=== PATIENT | female | born 1985 | race African-American/Black ===

== ENCOUNTER 2017-12-03 09:53 | Emergency (ER) | payer OTHER ==
[2017-12-03 11:30] LABS: ADD MAN DIFF? NO
[2017-12-03 11:31] LABS: URINE HCG POC HCG NEGATIVE (Negative)
[2017-12-03 11:38] LABS: BILIRUBIN,URINE NEGATIVE (NEG); CLARITY,URINE CLEAR; COLOR,URINE YELLOW; GLUCOSE,URINE NEGATIVE (NEG); NITRITE,URINE NEGATIVE (NEG); PH,URINE 7.5; PROTEIN,URINE NEGATIVE (NEG-TRACE); UROBILINOGEN,URINE 0.2 mg/dL (0.2 mg/dL)
[2017-12-03 11:41] LABS: BASO % 1 % (0-3); EOS # 0.1 x10^3/uL (0.0-0.7); EOS % 4 % (0-3); HEMATOCRIT 35.7 % (36.0-47.0); HEMOGLOBIN 11.6 g/dL (12.0-15.5); LYMPH # 1.7 x10^3/uL (1.0-4.8); LYMPH % 43 % (24-48); MEAN CORPUSCULAR HEMOGLOBIN 31 pg (25-35); MEAN CORPUSCULAR HGB CONC 33 g/dL (31-37); MEAN CORPUSCULAR VOLUME 95 fL (79-100); MONO # 0.3 x10^3/uL (0.0-1.1); MONO % 7 % (0-9); NEUT # 1.8 x10^3uL (1.8-7.7); NEUT % 46 % (31-73); PLATELET COUNT 249 x10^3/uL (140-400); RED BLOOD COUNT 3.77 x10^6/uL (3.50-5.40); RED CELL DISTRIBUTION WIDTH 13.4 % (11.5-14.5)
[2017-12-03 11:44] LABS: BARBITURATES NEG (NEG); BENZODIAZEPINES NEG (NEG); CANNABINOIDS NEG (NEG); COCAINE NEG (NEG); METHADONE NEG (NEG); OPIATES NEG (NEG); PHENCYCLIDINE NEG (NEG)
[2017-12-03 11:46] LABS: AMPHETAMINE/METHAMPHETAMINE NEG (NEG); ETHANOL, URINE NEG (NEG)
[2017-12-03 11:51] LABS: SQUAMOUS EPITHELIAL CELL,UR MOD /LPF
[2017-12-03 11:52] LABS: BACTERIA,URINE FEW /HPF (0-FEW); RBC,URINE OCC /HPF (0-2)
[2017-12-03 12:00] LABS: TROPONINI < 0.017 ng/mL (0.000-0.055)
[2017-12-03 12:03] LABS: THYROID STIM HORMONE (TSH) 1.642 uIU/mL (0.358-3.74)
[2017-12-03 12:06] LABS: CKMB INDEX 0.7 % (0-4); CKMB MASS 0.6 ng/mL (0.0-3.6); CREATINE KINASE 84 U/L (26-192)
[2017-12-03 12:06] LABS: NT-PRO BNP 40 pg/mL (0-124)
[2017-12-03 12:08] LABS: ANION GAP 10 (6-14); BLOOD UREA NITROGEN 8 mg/dL (7-20); CALCIUM 8.1 mg/dL (8.5-10.1); CARBON DIOXIDE 26 mmol/L (21-32); CHLORIDE 104 mmol/L (98-107); CREATININE 0.5 mg/dL (0.6-1.0); GFR 171.9; GLUCOSE 88 mg/dL (70-99); POTASSIUM 3.7 mmol/L (3.5-5.1); SODIUM 140 mmol/L (136-145)
[2017-12-03 12:11] LABS: ALBUMIN 3.9 g/dL (3.4-5.0); ALK PHOS 52 U/L (46-116); ALT (SGPT) 13 U/L (14-59); AST (SGOT) 15 U/L (15-37); DIRECT BILIRUBIN 0.1 mg/dL (0.0-0.2); LIPASE 104 U/L (73-393); MAGNESIUM 2.1 mg/dL (1.8-2.4); TOTAL BILIRUBIN 0.4 mg/dL (0.2-1.0); TOTAL PROTEIN 7.4 g/dL (6.4-8.2)
== END 2017-12-03 12:46 | disposition home or self-care (01) ==
LOC: ER 09:53
DX: R00.2 Palpitations (principal); R07.89 Other chest pain; R06.02 Shortness of breath; I48.91 Unspecified atrial fibrillation
CPT/HCPCS: 36415; 71046; 80048; 80076; 80307; 81001; 81025; 82553; 83690; 83735; 83880; 84443; 84484; 85025; 93005; 99285-25

== ENCOUNTER → 2018-01-17 | Outpatient (CLI) | payer OTHER | END | disposition home or self-care (01) | LOC: EKG 10:07 | DX: I34.0 Nonrheumatic mitral (valve) insufficiency (principal); R00.2 Palpitations; R06.02 Shortness of breath; R53.83 Other fatigue; R07.89 Other chest pain | CPT/HCPCS: 93226; 93306 ==

== ENCOUNTER → 2018-11-25 | Outpatient (CLI) | payer MEDICAID ==
[2017-12-03 12:15] VITALS: BP 108/62
--- NOTE | 2018-11-25 18:33 | RAD ---
EXAM: PA and Lateral Views of the Chest DATE: 11/25/2018 3:08 PM INDICATION: chest pain, soa x2 weeks COMPARISON: No Prior FINDINGS: The heart is not enlarged. Mediastinal and hilar contours are normal. No focal parenchymal airspace opacity. No pleural effusion or pneumothorax. Apparent nodular density projecting over the lower right lung field is favored to represent a nipple shadow. IMPRESSION: 1. No radiographic evidence for acute cardiopulmonary process. 2. Apparent nodular density projecting over the lower right lung field is favored to represent a nipple shadow. Electronically signed by: Gregg Harp MD (11/25/2018 6:28 PM) [id number]
== END | disposition home or self-care (01) ==
LOC: RAD 14:47
PROVIDERS: ATTEND Internal Medicine Cardiovascular Disease
DX: R07.9 Chest pain, unspecified (principal); R06.02 Shortness of breath
CPT/HCPCS: 71046

== ENCOUNTER → 2018-12-11 | Outpatient (CLI) | payer OTHER ==
[2017-12-03 12:15] VITALS: BP 108/62
--- NOTE | 2018-12-11 15:29 | CARD ---
MR#: [id number] Date of Study: 12/11/2018 Ordering Physician: PRINCESS SUAREZ, Referring Physician: PRINCESS SUAREZ, Tech: Sarah Marin GIN APPROVED REPORT INDICATION Chest Pain Murmur PROCEDURE The patient underwent an Exercise Stress Test using the Richie Protocol. Blood pressure, heart rate, a nd EKG were monitored. An Echocardiogram was performed by railroad signal technician in four stages in quad fashion. At peak stress four se lected images were obtained and placed side by side with resting images for comparison. STRESS ECHO FINDINGS The resting Echocardiogram showed normal left ventricular systolic contractility with an estimated Ej ection Fraction of about 60 %. The Resting Echocardiogram showed normal augmentation of myocardial wall segments using a 16 segment model. The Stress Echocardiogram showed normal augmentation of myocardial wall segments using a 16 segment m michael. Test Type: Exercise Stress Nurse/Tech: Carly Cannon R.N. Test Indications: c/p Cardiac History and Allergies: see ehr Medications: see ehr Medical History: see ehr Resting ECG: SR Resting Heart Rate: 90 bpm Resting Blood Pressure: 103/44mmHg Pretest Chest Pain: No chest pain Nurse/Tech Notes S1S2, lungs CTA Stress Symptoms SOB at the end and chest pressure scale 5/10-- not the same pain she has been having- resolved by end of recovery period POST EXERCISE Reason for Termination: Reached target heart rate Target HR: Yes Max HR: 183 bpm 98% of Maximum Predicted HR: 186 bpm Exercise duration: 12:01 min:sec, 4 Stage Exercise capacity: 12.8METs Max Blood Pressure: 154/72mmHg Blood Pressure response to exercise: Normal blood pressure response during stress. Heart Rate response to exercise: wnl Chest Pain: Yes. chest pressure Arrhythmia: No. ST Change: No. INTERPRETATION Stress EKG Conclusion: Baseline EKG showed sinus rhythm. No ischemic changes at peak stress. No arr hythmias. Preliminary Notification Critical Value: No <Conclusion> Treadmill exercise stress echocardiogram did not show any evidence of ischemia or infarct. Normal left ventricle systolic function with ejection fraction estimated at 60%. Patient had good activity tolerance. Low risk for cardiac events. Signed by : Demond Brandon, Electronically Approved : 12/11/2018 15:27:45
--- NOTE | 2018-12-11 15:31 | CARD ---
MR#: [id number] Date of Study: 12/11/2018 Ordering Physician: PRINCESS SUAREZ, Referring Physician: PRINCESS SUAREZ, Tech: Sarah Marin GIN APPROVED REPORT EXAM: Two-dimensional and M-mode echocardiogram with Doppler and color Doppler. Other Information Quality : Good INDICATION Chest Pain Murmur 2D DIMENSIONS RVDd2.8 (2.9-3.5cm)Left Atrium(2D)2.6 (1.6-4.0cm) IVSd0.7 (0.7-1.1cm)Aortic Root(2D)2.3 (2.0-3.7cm) LVDd4.1 (3.9-5.9cm)LVOT Diameter2.0 (1.8-2.4cm) PWd0.7 (0.7-1.1cm)LVDs2.4 (2.5-4.0cm) FS (%) 30.0 %SV53.0 ml LVEF(%)60.0 (>50%) Aortic Valve AoV Peak Ernesto.140.0cm/sAoV VTI22.5cm AO Peak GR.7.8mmHgLVOT Peak Ernesto.132.6cm/s AO Mean GR.4mmHgAVA (VMAX)2.94cm2 CORINA (VTI)3.30cm2 Mitral Valve MV E Apbktelo32.7cm/sMV DECEL [id number] MV A Yigiaqom33.4cm/sE/A Ratio1.5 Tricuspid Valve TR P. Atdqctcz918wm/sRAP SZAZHEML1jdIr TR Peak Gr.19rwZaWWKO91jzFs Pulmonary Vein S1 Djvrafeq16.9cm/sD2 Sxuhvdrt29.2cm/s LEFT VENTRICLE The left ventricle is normal size. There is normal left ventricular wall thickness. The left ventricu lar systolic function is normal. The Ejection Fraction is 55-60%. There is normal LV segmental wall m otion. The left ventricular diastolic function and filling is normal for age. RIGHT VENTRICLE The right ventricle is normal size. The right ventricular systolic function is normal. ATRIA The left atrium size is normal. The right atrium size is normal. The interatrial septum is intact wit h no evidence for an atrial septal defect or patent foramen ovale as noted on 2-D or Doppler imaging. AORTIC VALVE The aortic valve is normal in structure and function. Doppler and Color Flow revealed no significant aortic regurgitation. There is no significant aortic valvular stenosis. MITRAL VALVE The mitral valve is normal in structure and function. There is no evidence of mitral valve prolapse. There is no mitral valve stenosis. Doppler and Color Flow revealed no mitral valve regurgitation note d. TRICUSPID VALVE The tricuspid valve is normal in structure and function. Doppler and Color Flow revealed trace tricus pid regurgitation. The PA pressure was estimated at 23 mmHg. There is no tricuspid valve stenosis. PULMONIC VALVE The pulmonic valve is not well visualized. Doppler and Color Flow revealed trace pulmonic valvular re gurgitation. There is no pulmonic valvular stenosis. GREAT VESSELS The aortic root is normal in size. The ascending aorta is normal in size. The IVC is normal in size a nd collapses >50% with inspiration. PERICARDIAL EFFUSION There is no evidence of significant pericardial effusion. Critical Notification Critical Value: No <Conclusion> The left ventricular systolic function is normal. The Ejection Fraction is 55-60%. There is normal LV segmental wall motion. Doppler and Color Flow revealed trace tricuspid regurgitation. The PA pressure was estimated at 23 mmHg. There is no evidence of significant pericardial effusion. Signed by : Demond Brandon, Electronically Approved : 12/11/2018 15:28:46
== END | disposition home or self-care (01) ==
LOC: ECHO 13:03
PROVIDERS: ATTEND Internal Medicine Cardiovascular Disease
DX: R01.1 Cardiac murmur, unspecified (principal); R07.9 Chest pain, unspecified
CPT/HCPCS: 93017; 93306; 93350

== ENCOUNTER 2019-08-13 13:29 | Emergency (ER) | payer SELFPAY ==
[~2019-08-13] VITALS: Ht 162.6 cm; Wt 56.7 kg
[2019-08-13 13:40] VITALS: BP 121/59
[2019-08-13] MEDS ORDERED: predniSONE 20 MG TABLET PO ONE (14:15)
--- NOTE | 2019-08-13 14:20 | PHYS DOC ---
Past Medical History Past Medical History: No Pertinent History Additional Past Medical Histor: miscarriage x 2 (MIAHYUDELKA BARROSO APRN) Past Surgical History: , Tonsillectomy Additional Past Surgical Histo: x 2 (MIAHYUDELKA BARROSO APRN) Alcohol Use: Occasionally Drug Use: Marijuana (MIAHYUDELKA BARROSO APRN) Adult General Chief Complaint Chief Complaint: BACK INJURY HPI HPI Patient is a 34 year old female who presents with lower back pain. Hx of chronic back pain, has not had pain in "years" Started to have pain in May, lower back after moving. Has been seeing a Chiropractor, not worse but not better. States her lower back is out of alignment.no falls or trauma. No deficit. Motrin for pain Has not called PCP also concerned about UTI, reports urinary frequency, no fevers or dysuria. No hematuria (MIAHYUDELKA BARROSO APRN) Review of Systems Review of Systems Constitutional: Denies fever or chills [] Eyes: Denies change in visual acuity, redness, or eye pain [] HENT: Denies nasal congestion or sore throat [] Respiratory: Denies cough or shortness of breath [] Cardiovascular: No additional information not addressed in HPI [] GI: Denies abdominal pain, nausea, vomiting, bloody stools or diarrhea [] : Denies dysuria or hematuria []c/o frequency Musculoskeletal: Denies joint pain []c/o lower back pain Integument: Denies rash or skin lesions [] Neurologic: Denies headache, focal weakness or sensory changes [] Endocrine: Denies polyuria or polydipsia [] All other systems were reviewed and found to be within normal limits, except as documented in this note. (MIAHYUDELKA BARROSO APRN) Current Medications Current Medications Current Medications Medications (Trade) Dose Ordered Sig/Demetrius Start Time Stop Time Status Last Admin Dose Admin Cephalexin HCl (Keflex) 500 mg ONCE ONCE 08/13/19 15:00 08/13/19 15:01 DC 08/13/19 14:58 500 MG Prednisone (Prednisone) 60 mg 1X ONCE 08/13/19 14:15 08/13/19 14:16 DC 08/13/19 14:15 60 MG (ALBERT MELISSA MD) Allergies Allergies Allergies Coded Allergies Type Severity Reaction Last Updated Verified No Known Drug Allergies 05/17/15 No (ALBERT MELISSA MD) Physical Exam Physical Exam Constitutional: Well developed, well nourished, no acute distress, non-toxic appearance. [] HENT: Normocephalic, atraumatic, bilateral external ears normal, oropharynx moist, no oral exudates, nose normal. [] Eyes: PERRLA, EOMI, conjunctiva normal, no discharge. [] Neck: Normal range of motion, no tenderness, supple, no stridor. [] Cardiovascular:Heart rate regular rhythm, no murmur [] Lungs & Thorax: Bilateral breath sounds clear to auscultation [] Abdomen: Bowel sounds normal, soft, no tenderness, no masses, no pulsatile masses. [] Skin: Warm, dry, no erythema, no rash. [] Back: no CVA tenderness. [] No rash, no masses, no VPT, diffuse pain to the lower back, negative bilateral saddle anesthesia, intact pulses and distal cap refill, negative straight leg raise Extremities: No tenderness, no cyanosis, no clubbing, ROM intact, no edema. [] Neurologic: Alert and oriented X 3, normal motor function, normal sensory function, no focal deficits noted. [] Psychologic: Affect normal, judgement normal, mood normal. [] (YUDELKA DOOLEY APRN) Current Patient Data Vital Signs Vital Signs Date Time Temp Pulse Resp B/P (MAP) Pulse Ox O2 Delivery O2 Flow Rate FiO2 08/13/19 13:40 97.9 64 16 121/59 (79) 97 Room Air 97.9 (ALBERT MELISSA MD) Lab Values Laboratory Tests Test 08/13/19 14:05 08/13/19 14:12 Urine Collection Type Void Urine Color Yellow Urine Clarity Clear Urine pH 6.0 Urine Specific Dane 1.020 Urine Protein Negative mg/dL (NEG-TRACE) Urine Glucose (UA) Negative mg/dL (NEG) Urine Ketones (Stick) 15 mg/dL (NEG) Urine Blood Small (NEG) Urine Nitrite Negative (NEG) Urine Bilirubin Negative (NEG) Urine Urobilinogen Dipstick 0.2 mg/dL (0.2 mg/dL) Urine Leukocyte Esterase Negative (NEG) Urine RBC 1-2 /HPF (0-2) Urine WBC Rare /HPF (0-4) Urine Squamous Epithelial Cells Mod /LPF Urine Bacteria Moderate /HPF (0-FEW) Urine Mucus Marked /LPF POC Urine HCG, Qualitative Hcg negative (Negative) (ALBERT MELISSA MD) Lab Values Laboratory Tests Test 08/13/19 14:05 08/13/19 14:12 Urine Collection Type Void Urine Color Yellow Urine Clarity Clear Urine pH 6.0 Urine Specific Dane 1.020 Urine Protein Negative mg/dL (NEG-TRACE) Urine Glucose (UA) Negative mg/dL (NEG) Urine Ketones (Stick) 15 mg/dL (NEG) Urine Blood Small (NEG) Urine Nitrite Negative (NEG) Urine Bilirubin Negative (NEG) Urine Urobilinogen Dipstick 0.2 mg/dL (0.2 mg/dL) Urine Leukocyte Esterase Negative (NEG) Urine RBC 1-2 /HPF (0-2) Urine WBC Rare /HPF (0-4) Urine Squamous Epithelial Cells Mod /LPF Urine Bacteria Moderate /HPF (0-FEW) Urine Mucus Marked /LPF POC Urine HCG, Qualitative Hcg negative (Negative) (YUDELKA DOOLEY APRN) EKG EKG [] (YUDELKA DOOLEY APRN) Radiology/Procedures Radiology/Procedures [] Signed PATIENT: EFREM PORTILLO ACCOUNT: [id number] : 1985 LOCATION: ER AGE: 34 SEX: F EXAM STATUS: REG ER ORD. PHYSICIAN: YUDELKA DOOLEY APRN REASON: back pain PROCEDURE: LUMBAR SPINE 2-3V LUMBAR SPINE 2-3V History: Back pain Technique: 3 views lumbar spine Comparison: None. Findings: Normal vertebral body height and alignment no fracture. Soft tissues unremarkable. Impression: 1. No acute osseous abnormality. Electronically signed by: Sidney Vargas DO (08/13/2019 2:43 PM) [id number] DICTATED and SIGNED BY: SIDNEY VARGAS DO DATE: 08/13/19 1443 (YUDELKA DOOLEY APRN) Impressions: Lower back pain, acute on chronic (YUDELKA DOOLEY APRN) Course & Med Decision Making Course & Med Decision Making Pertinent Labs and Imaging studies reviewed. (See chart for details) []Lower back pain, acute on chronic and concern for UTI VSS, no trauma, no deficit Xray: no acute finding Prednisone, Keflex [place] Call PCP for follow up, educated on home care fu and reasons to return to the ER (YUDELKA DOOLEY APRN) Course & Med Decision Making Staff Physician Addendum: I was working in the ER during the course of this patient's visit. I was available for consultation as needed, but I was not directly involved in the care of this patient. (ALBERT MELISSA MD) Dragon Disclaimer Dragon Disclaimer This electronic medical record was generated, in whole or in part, using a voice recognition dictation system. (YUDELKA DOOLEY APRN) Departure Departure Impression: Primary Impression: Back pain Additional Impression: Urinary tract infection Disposition: HOME, SELF-CARE Condition: STABLE Referrals: KELSI VALENZUELA MD (PCP) Patient Instructions: Back Pain, Adult, Urinary Tract Infection Additional Instructions: Push fluids and rest Xray, no acute finding Medications as prescribed Call your doctor for follow up, MRI? ER can only do short courses of medications and no refills, return for any concerns or worsening symptoms Scripts Cephalexin (KEFLEX) 500 Mg Capsule 1 CAP PO BID for 7 Days, #14 CAP Prov: YUDELKA DOOLEY APRN 08/13/19 Hydrocodone/Apap 5-325 (NORCO 5-325 TABLET) 1 Each Tablet 1-2 TAB PO Q4-6HRS for 10 Days, #40 TAB Prov: YUDELKA DOOLEY APRN 08/13/19 Prednisone (PREDNISONE) 20 Mg Tablet 1 TAB PO BID for 5 Days, #10 TAB Prov: YUDELKA DOOLEY APRN 08/13/19 Problem Qualifiers YUDELKA DOOLEY APRN Aug 13, 2019 14:20 ALBERT MELISSA MD Aug 14, 2019 08:27
[2019-08-13 14:25] LABS: BILIRUBIN,URINE NEGATIVE (NEG); CLARITY,URINE CLEAR; COLOR,URINE YELLOW; NITRITE,URINE NEGATIVE (NEG); PROTEIN,URINE NEGATIVE (NEG-TRACE); UROBILINOGEN,URINE 0.2 mg/dL (0.2 mg/dL)
[2019-08-13 14:38] LABS: BACTERIA,URINE MODERATE /HPF (0-FEW); SQUAMOUS EPITHELIAL CELL,UR MOD /LPF; WBC,URINE RARE /HPF (0-4)
--- NOTE | 2019-08-13 14:46 | RAD ---
LUMBAR SPINE 2-3V History: Back pain Technique: 3 views lumbar spine Comparison: None. Findings: Normal vertebral body height and alignment no fracture. Soft tissues unremarkable. Impression: 1. No acute osseous abnormality. Electronically signed by: Sidney Vargas DO (08/13/2019 2:43 PM) [id number]
[2019-08-13] MEDS ORDERED: HYDR-3164 PO (14:57)
[2019-08-13] MEDS ORDERED: CEPH-264 PO (14:57)
[2019-08-13] MEDS ORDERED: PRED20TA PO (14:57)
[2019-08-13] MEDS ORDERED: CEPHALEXIN 250 MG CAPSULE. PO ONE (15:00)
== END 2019-08-13 15:12 | disposition home or self-care (01) ==
LOC: ER 13:29
DX: N39.0 Urinary tract infection, site not specified (principal); M54.5 Low back pain; G89.29 Other chronic pain
CPT/HCPCS: 72100; 81001; 81025; 87086; 99285; J7512